=== PATIENT | male | born 1985 | race Caucasian/White ===

== ENCOUNTER 2022-01-09 11:50 | Emergency (ER) | payer MEDICAID, SELFPAY ==
--- NOTE | ~2022-01-09 | XR_ITS ---
EXAMINATION: XR ANKLE, LEFT CLINICAL INFORMATION: Ankle injury COMPARISON: None TECHNIQUE: AP, lateral, and mortise views of the left ankle. FINDINGS: There is an oblique fracture of the distal shaft of the fibula. This appears essentially nondisplaced. There is a ossification adjacent to the medial malleolus questionable for tiny avulsion fracture. There is question of mild medial ankle mortise widening. There is anterior and lateral soft tissue swelling and probable joint effusion. XR/XR ankle LT min 3V IMPRESSION: Nondisplaced fracture of the distal fibular shaft and question small avulsion fracture of the medial malleolus and medial ankle mortise widening.
[2022-01-09 12:49] VITALS: BP 116/68; PULSE 72; RESP 17; TEMP 36.9; O2SAT 100; BMI 30.2
--- NOTE | 2022-01-09 13:36 | ED_ITS ---
HPI - Extremity Injury (Lower) General Chief Complaint: Extremity Injury, Lower Stated Complaint: l foot leg inj Time Seen by Provider: 01/09/22 13:36 Source: patient Mode of arrival: ambulatory Limitations: no limitations History of Present Illness HPI Narrative: Left ankle injury. Patient was going down stairs when he tripped and fell twisting his left ankle 2 hours ago, patient was able to hold the the radial and prevented a fall. Complaining of swelling and tenderness unable to bear weight on his left ankle and foot. No head injury or neck injury. Related Data Allergies Allergy/AdvReac Type Severity Reaction Status Date / Time No Known Allergies Allergy Verified 01/09/22 12:52 Review of Systems Review of Systems: All other systems are reviewed and are negative Constitutional: Reports as per HPI and Reports no additional constitutional complaints Eyes: Reports as per HPI and Reports no additional eye complaints Reports system reviewed and no additional complaints, except as documented Cardiovascular: Reports as per HPI and Reports no additional cardiovascular complaints Respiratory: Reports as per HPI and Reports no additional respiratory complaints Gastrointestinal: Reports as per HPI and Reports no additional gastrointestinal complaints Genitourinary: Reports no additional female genitourinary complaints Musculoskeletal: Reports no additional musculoskeletal complaints Skin/Breast: Reports system reviewed and no additional complaints, except as docu Psychiatric: Reports no additional psychiatric complaints Endocrine: Reports no additional endocrine complaints Hematologic/Lymphatic: Reports no additional hematologic/lymphatic complaints Allergic/Immunologic: Reports no additional allergic/immunologic complaints Reports system reviewed and no additional complaints, except as documented and Reports Abnormal speech present [facility] Past Medical History Medical History No known health problems Social History Social History Advance Directives: No Advance Directives Information Provided: No Physical Exam Vital Signs: Vital Signs: Last Vital Signs Temp 98.5 F 01/09/22 12:49 Pulse 72 01/09/22 12:49 Resp 17 01/09/22 14:51 BP 116/68 01/09/22 12:49 Pulse Ox 100 01/09/22 12:49 BMI result Body Mass Index 30.2 Vital signs have been reviewed as appeared to be correct. Blood pressure normal. Heart rate normal. Respiration rate normal. Temperature normal. Oxygen saturation normal. Appearance: Alert. Oriented X3. No acute distress. Head: Normal external exam. Normocephalic. Atraumatic. No Marte signs noted. No raccoon eyes noted Eyes: PERRLA. EOMI. Conjunctiva and sclera normal. Eyelids normal. ENT: TM's Normal. Pharynx normal. Uvula midline. Moist mucous membranes. No trismus noted. No drooling noted. No muffled voice noted. Neck: Normal inspection. Neck supple. FROM. No adenopathy. Thyroid Normal. No meningeal signs. No neck mass noted. CVS: Normal heart rate and rhythm. Heart sound normal. No murmurs noted. Pulses normal throughout. Respiratory: No respiratory distress. Painless inspiration. Breath sounds no rmal. No wheezes/rales/rhonchi noted. Chest nontender. No accessory muscle usage noted or decreased air movement noted. Abdomen: Soft and nontender. Bowel sounds normal in all 4 quadrants. No disten tion noted. No organomegaly noted. No visible injury noted. Back: No CVA tenderness. Full range of motion noted. Skin: Skin warm and dry. Normal skin color. Normal skin turgor. No rashes/lesions/lacerations noted. Extremities: Left ankle swelling, no deformity, neurovascularly intact. Neuro: Oriented X 3. Cranial nerve exam: II-XII are grossly intact No motor deficit. No sensory deficit. Reflexes normal. Course Course Course Narrative: Assessment and plan. Left ankle fracture, splint, no bear weight and crutches, ice, NSAIDs. follow-up with ortho.. MDM - Extremity Injury (Lower) Imaging Data Left ankle x-ray: Attestation: I personally reviewed and interpreted this imaging study as follows: Radiologist's impression: Nondisplaced fracture of the distal fibular shaft and question small avulsion fracture of the medial malleolus and medial ankle mortise widening. Discharge Plan Discharge Clinical Impression: Closed fibular fracture Patient Disposition: Home, Self-Care Instructions: Ankle Sprain (ED) Referrals: Physician,Kassidy J [Primary Care Provider] - 2 days Erich Shirley MD [Physician] - 2 days Stand Alone Forms: Work/School Release
[2022-01-09] MEDS: Ibuprofen 600 MG TABLET PO (13:53)
[2022-01-09 14:51] VITALS: RESP 17
[2022-01-09 15:24] VITALS: BP 122/70; PULSE 70; RESP 18; TEMP 36.6; O2SAT 100
== END 2022-01-09 15:33 | disposition home or self-care (01) ==
PROVIDERS: Emergency Provider Emergency Medicine
DX: S82.402A Unspecified fracture of shaft of left fibula, initial encounter for closed fracture (principal); W01.0XXA Fall on same level from slipping, tripping and stumbling without subsequent striking against object, initial encounter; Y93.9 Activity, unspecified; Y92.9 Unspecified place or not applicable; Y99.9 Unspecified external cause status
CPT/HCPCS: 73610; 99283

== ENCOUNTER → 2022-01-12 13:55 | Outpatient (BNVA) | payer MEDICAID, SELFPAY | PROVIDERS: Visit Provider Physician Assistant | DX: S82.832A Other fracture of upper and lower end of left fibula, initial encounter for closed fracture (principal) | CPT/HCPCS: 99202 ==

== ENCOUNTER 2022-01-29 08:52 | Outpatient (REF) | payer MEDICAID, SELFPAY | END 2022-01-29 08:53 | disposition home or self-care (01) | LOC: HO.HOSX 08:52 | PROVIDERS: Visit Provider Physician Assistant | DX: Z13.89 Encounter for screening for other disorder (principal) ==